=== PATIENT | male | born 1945 | race Caucasian/White ===

== ENCOUNTER 2018-06-29 11:00 | Day surgery (SDC) | payer MEDICARE, BC ==
[~2018-06-29] VITALS: Ht 190.5 cm; Wt 88.6 kg
[~2018-06-29 11:00] MED LIST: Advil200 M1 PO; Flonase 0.05% N16 GM INH; Lo-Dose Aspirin81 MG PO; PROBIOTICS; RANI150EL PO; TADA10TA PO
== END 2018-06-29 15:30 | disposition home or self-care (01) ==
LOC: ORSCSDS 11:00
PROVIDERS: Orthopaedic Surgery
PROC: 01N50ZZ Release Median Nerve, Open Approach (ICD-10-PCS; principal; 2018-06-29 12:15)
DX: G56.01 Carpal tunnel syndrome, right upper limb (principal); K21.9 Gastro-esophageal reflux disease without esophagitis; Z79.899 Other long term (current) drug therapy; Z79.82 Long term (current) use of aspirin
CPT/HCPCS: J0690; J2250; J3010; J7120

== ENCOUNTER 2021-09-17 12:39 | Day surgery (SDC) | payer MEDICARE, BC ==
[~2021-09-17] VITALS: Ht 190.5 cm; Wt 86.4 kg
[2021-09-17] MEDS ORDERED: BUPR75 PO (14:12)
[2021-09-17] MEDS ORDERED: ATOR10 (14:15)
== END 2021-09-17 16:02 | disposition home or self-care (01) ==
LOC: ORSCSDS 12:39
PROVIDERS: Internal Medicine Gastroenterology
PROC: 0DJD8ZZ Inspection of Lower Intestinal Tract, Via Natural or Artificial Opening Endoscopic (ICD-10-PCS; principal; 2021-09-17 14:00)
DX: Z12.11 Encounter for screening for malignant neoplasm of colon (principal); Z80.0 Family history of malignant neoplasm of digestive organs; Z86.010 Personal history of colon polyps; K57.30 Diverticulosis of large intestine without perforation or abscess without bleeding; K64.8 Other hemorrhoids; K62.7 Radiation proctitis; Z86.718 Personal history of other venous thrombosis and embolism; Z79.899 Other long term (current) drug therapy; Z79.82 Long term (current) use of aspirin
CPT/HCPCS: J0461; J2405; J2704; J7120